=== PATIENT | female | born 1975 | race Caucasian/White ===

== ENCOUNTER 2016-11-14 20:48 | Emergency (ER) | payer SELFPAY ==
[2016-11-14 21:17] VITALS: BP 136/87
[2016-11-14] MEDS ORDERED: HYDROmorphone 2 MG/ML SDV IM ONE (21:35)
[2016-11-14] MEDS ORDERED: Ondansetron 4 MG Tab.DIS PO SCH (21:45)
[2016-11-14] MEDS ORDERED: Acetaminophen/HYDROcodone 325-5 MG Tab PO ONE (23:21)
--- NOTE | 2016-11-16 10:12 | ER ---
DATE SEEN: 11/14/2016 TIME SEEN: The patient was seen at 0920 hours. CHIEF COMPLAINT: Injury to left chest ribs, left knee, and left ankle. HISTORY OF PRESENT ILLNESS: This 41-year-old woman who works at the [employer] went into the freezer and fell down as she slipped and lost her balance and slipped on pickle water and a pickle. No loss of consciousness. No head injury, neck injury, no upper extremities discomfort or injury. She complains of left chest rib, left knee, and left ankle discomfort. REVIEW OF SYSTEMS: Negative. The patient is 10, para 5-5-0-5. Denies diabetes, heart disease, high blood pressure, asthma, or other serious illnesses. CURRENT MEDICATIONS: None. ALLERGIES: Latex, sesame oil, and strawberry. PHYSICAL EXAMINATION: VITAL SIGNS: The patient is in mild distress. Blood pressure 136/87, heart rate 103, respirations 18, oxygen saturation 96%, temperature is 36.2 centigrade. GENERAL: The patient is attended by her . The patient is mildly overweight, pleasant woman, in moderate distress. HEENT: PERRLA intact. Pharynx without abnormality. No dental abnormality. PERRLA intact. Pharynx without abnormality. No dental abnormalities or jaw line. NECK: No neck pain or discomfort, ecchymosis, swelling. No neck bruits. No cervical adenopathy. No masses of neck. LUNGS: Clear to auscultation without rales, rhonchi, or wheezes. CHEST WALL: No chest wall pain on palpation of the ribs or the sternal costochondral joints. She has mild left lower ribs 12 and 11 discomfort without crepitus. No ecchymosis or abrasions of the chest wall. ABDOMEN: Soft. No guarding. No abdominal discomfort. HEART: S1, S2. No murmur. No irregular rate and rhythm. EXTREMITIES: Upper extremities negative without abnormality. Left knee tenderness with compression of the patella. Mild medial and lateral joint line discomfort. Mild left lateral inferior thigh discomfort. No ecchymosis, swelling, or deformity noted. Palpation of the left lower extremity; no tenderness of the gastroc. There is mild distal 1/3rd tibial discomfort with lateral fibular discomfort. No deformity, minimal swelling. The patient was reluctant to move her ankle because this induced pain. No loss of sensation in left lower extremity. NEUROLOGICAL: Deep tendon reflexes hypoactive in upper and lower extremities. Cranial nerves II through XII intact, oriented x3. Gait not tested. LABORATORY DATA: X-rays of the left distal femur and knee, no evidence for effusion. Left ankle is negative. No evidence for fracture, subluxation. High ankle sprain - separation of the fibular or tibial ligaments. No separation of fibular or tibial syndesmosis. Ankle without edema. ASSESSMENT: 1. Left knee strain. 2. Possible collateral ligament strain - pain with collateral ligament stresses. Possible meniscal tear. Rule out internal knee derangement. 3. Left ankle sprain. No evidence for fracture of knee, patella, or left ankle. 4. Obesity. 5. Smoking history of half a pack per day. PLAN: The patient received Dilaudid 1 mg IM and Zofran 4 mg oral dissolving tab in the ED. Dismissed with 8 tablets of Vicodin to use for breakthrough pain, 1000 mg Tylenol, and 600 mg ibuprofen if not satisfactory. Follow up with your doctor in 7 days, elevate, use left ankle brace, and gradually increase activity as tolerated. Work compensation form completed. The patient to followup with her doctor in 5 days. /[id number] 331 31 MARIA R/[place]
--- NOTE | 2016-11-17 11:15 | CR ---
INDICATION: Fall with pain laterally, proximal 5th metatarsal. LEFT FOOT: Three views of the left foot revealed minimal degenerative changes at the first metatarsophalangeal and first metatarsal tarsal joints, with a small to moderate sized plantar calcaneal spur. A fracture, dislocation, or other significant bone or joint abnormality, was not identified. MTDD
--- NOTE | 2016-11-17 11:17 | CR ---
INDICATION: Fall, pain. LEFT TIBIA AND FIBULA: Frontal and lateral views of the left tibia and fibula revealed no definite fracture or dislocation, or other acute bone or joint abnormality. There appear to be some minimal hypertrophic changes at the ankle mortise, suggesting a mild degree of osteoarthritis. MTDD
--- NOTE | 2016-11-17 11:19 | CR ---
INDICATION: Fall, pain. FOOSH. LEFT FOREARM: Frontal and lateral views of the left forearm revealed no evidence of an acute fracture, dislocation, or other significant bone or joint abnormality. IMPRESSION: Normal left forearm. FABRICIO
--- NOTE | 2016-11-17 11:22 | CR ---
INDICATION: Fall. FOOSH. LEFT WRIST: Three views of the left wrist revealed no evidence of an acute fracture, dislocation, or other acute bone or joint abnormality. There appear to be some very minimal degenerative changes at the navicular multangular joints and mild degenerative changes at the first metacarpal-carpal joint. MTDD
== END 2016-11-14 23:30 | disposition home or self-care (01) ==
LOC: FB.ED 20:48
DX: S93.402A Sprain of unspecified ligament of left ankle, initial encounter (principal); S86.912A Strain of unspecified muscle(s) and tendon(s) at lower leg level, left leg, initial encounter; E66.9 Obesity, unspecified; F17.210 Nicotine dependence, cigarettes, uncomplicated; Z91.040 Latex allergy status; Z91.048 Other nonmedicinal substance allergy status; Z91.018 Allergy to other foods; W01.0XXA Fall on same level from slipping, tripping and stumbling without subsequent striking against object, initial encounter
CPT/HCPCS: 29125; 29515; 73090; 73110; 73590; 73630; 96372; 99283; A9270; J1170

== ENCOUNTER 2018-03-31 17:53 | Emergency (ER) | payer OTHER ==
--- NOTE | 2018-03-31 18:22 | EDM.PDOC ---
ED HPI GENERAL MEDICAL PROBLEM - General Chief Complaint: Chest Pain Stated Complaint: CHEST PAIN Time Seen by Provider: 03/31/18 18:05 Source of Information: Reports: Patient, Family History Limitations: Reports: No Limitations - History of Present Illness INITIAL COMMENTS - FREE TEXT/NARRATIVE: Carolann comes into [facility] ED with a 1 hour hx of L precordial stabbing chest pains, intermittent, with some radiation into the back. There is some SOB, without cough or wheezing. There is no nausea, palpitations, sweats, or lt headiness. She was inactive at the time, and reports no PMH of CAD. She does have a PMH of anxiety w panic attacks and fibromyalgia. She has tried no meds. - Related Data Allergies Allergy/AdvReac Type Severity Reaction Status Date / Time latex Allergy Rash Verified 03/31/18 18:24 sesame oil Allergy Other Verified 03/31/18 18:24 strawberry Allergy Rash Verified 03/31/18 18:24 Home Meds: Home Meds Escitalopram [Lexapro] 20 mg PO DAILY 03/31/18 [History] Social & Family History - Caffeine Use Caffeine Use: Reports: Coffee, Soda ED ROS GENERAL - Review of Systems Review Of Systems: See Below Constitutional: Reports: No Symptoms HEENT: Reports: No Symptoms Respiratory: Reports: Shortness of Breath Cardiovascular: Reports: Chest Pain, Lightheadedness Endocrine: Reports: No Symptoms GI/Abdominal: Reports: No Symptoms : Reports: No Symptoms Musculoskeletal: Reports: Muscle Pain (fibromyalgia) Skin: Reports: No Symptoms Neurological: Reports: No Symptoms Psychiatric: Reports: Anxiety Hematologic/Lymphatic: Reports: No Symptoms Immunologic: Reports: No Symptoms ED EXAM, GENERAL - Physical Exam Exam: See Below Exam Limited By: No Limitations General Appearance: Alert, WD/WN, No Apparent Distress, Anxious Eye Exam: Bilateral Eye: EOMI, Normal Inspection, PERRL Ears: Normal External Exam Nose: Normal Inspection Throat/Mouth: Normal Lips, Normal Oropharynx, Normal Voice, No Airway Compromise , Other (numerous caried teeth) Neck: Normal Inspection, Supple, Full Range of Motion Respiratory/Chest: No Respiratory Distress, Lungs Clear, Normal Breath Sounds, No Accessory Muscle Use, Other (parasternal chest tenderness #3,#4,#6 L>R) Cardiovascular: Normal Peripheral Pulses, Regular Rate, Rhythm, No Murmur GI/Abdominal: Normal Bowel Sounds, Soft, Non-Tender, No Organomegaly, No Distention, No Mass (Female) Exam: Deferred Rectal (Female) Exam: Deferred Back Exam: Normal Inspection, Full Range of Motion Extremities: Normal Inspection, Normal Range of Motion Neurological: Alert, Oriented, CN II-XII Intact, Normal Cognition, Normal Gait, No Motor/Sensory Deficits Psychiatric: Normal Affect, Anxious Skin Exam: Warm, Dry, Intact, Normal Color Lymphatic: No Adenopathy Course - Vital Signs Text/Narrative:: Following assessment at the [facility] ED, some screening labs were obtained, all baseline, Troponin <0.017; CBC and CMP WNL, ekg NSR, chest x rays WNL. Atypical chest pain, possibly related to fibromyalgia. - Orders/Labs/Meds Orders: Active Orders 24 hr Category Date Time Status EKG Documentation Completion [RC] ASDIRECTED Care 03/31/18 18:17 Active Chest 1V Frontal [CR] Stat Exams 03/31/18 18:16 Taken EKG 12 Lead [EK] Routine Ther 03/31/18 18:16 Ordered Labs: Laboratory Tests 03/31/18 03/31/18 03/31/18 Range/Units 18:30 18:30 18:30 WBC 8.5 (4.5-12.0) X10-3/uL RBC 4.12 (3.23-5.20) x10(6)uL Hgb 13.0 (11.5-15.5) g/dL Hct 38.2 (30.0-51.3) % MCV 92.6 (80-96) fL MCH 31.5 (27.7-33.6) pg MCHC 34.0 (32.2-35.4) g/dL RDW 14.1 (11.5-15.5) % Plt Count 327 (125-369) X10(3)uL MPV 8.4 (7.4-10.4) fL Neut % (Auto) 54.4 (46-82) % Lymph % (Auto) 32.6 (13-37) % Crosby % (Auto) 8.8 (4-12) % Eos % (Auto) 3 (1.0-5.0) % Baso % (Auto) 1 (0-2) % Neut # (Auto) 4.6 (1.6-8.3) # Lymph # (Auto) 2.8 (0.6-5.0) # Crosby # (Auto) 0.7 (0.0-1.3) # Eos # (Auto) 0.3 (0.0-0.8) # Baso # (Auto) 0.1 (0.0-0.2) # Sodium 138 (135-145) mmol/L Potassium 3.8 (3.5-5.3) mmol/L Chloride 102 (100-110) mmol/L Carbon Dioxide 27 (21-32) mmol/L BUN 7 (7-18) mg/dL Creatinine 0.7 (0.55-1.02) mg/dL Est Cr Clr Drug Dosing TNP Estimated GFR (MDRD) > 60 (>60) BUN/Creatinine Ratio 10.0 (9-20) Glucose 84 (80-116) mg/dL Calcium 8.7 (8.6-10.2) mg/dL Total Bilirubin 0.2 (0.1-1.3) mg/dL AST 10 (5-25) IU/L ALT 15 (12-36) U/L Alkaline Phosphatase 67 (56-112) IU/L Troponin I < 0.017 L (<0.017-0.056) ng/mL Total Protein 7.6 (6.0-8.0) g/dL Albumin 3.4 L (3.5-5.2) g/dL Globulin 4.2 g/dL Albumin/Globulin Ratio 0.8 Departure - Departure Time of Disposition: 18:56 Disposition: Home, Self-Care 01 Condition: Good Clinical Impression: Atypical chest pain Referrals: Nica Walton NP [Primary Care Provider] - Forms: ED Department Discharge - Problem List & Annotations (1) Atypical chest pain SNOMED Code(s): 661742056 Code(s): R07.89 - OTHER CHEST PAIN Status: Acute Current Visit: Yes Annotation/Comment:: Activity as tolerated, analgesic of choice. - Problem List Review Problem List Initiated/Reviewed/Updated: Yes - My Orders Last 24 Hours: My Active Orders 03/31/18 18:16 Chest 1V Frontal [CR] Stat EKG 12 Lead [EK] Routine 03/31/18 18:17 EKG Documentation Completion [RC] ASDIRECTED - Assessment/Plan Last 24 Hours: My Active Orders 03/31/18 18:16 Chest 1V Frontal [CR] Stat EKG 12 Lead [EK] Routine 03/31/18 18:17 EKG Documentation Completion [RC] ASDIRECTED Plan: Follow up with PCP if needed.
--- NOTE | 2018-04-01 15:03 | CR ---
INDICATION: Chest pain. CHEST, AP PORTABLE VIEW: FINDINGS: No comparison imaging. This patient appears to be of larger body habitus. There is some slight asymmetric increased density in the left lower lobe retrocardiac. It is possible that this simply is a summation of normal overlying breast tissue and normal lung markings. Otherwise, I assume a small area of atelectasis or infiltrate. I would recommend a followup x-ray at some point with PA and lateral views to document resolution of this abnormality. Otherwise, lungs are clear. The heart size and pulmonary vasculature are normal. There is no CHF. There is scoliosis deformity of the thoracic spine, curved convex right. There is some degenerative end plate change and spurring throughout the thoracic spine. IMPRESSION: Slight increased density in the left lobe retrocardiac. It could be a summation shadow versus an area of atelectasis or infiltrate. Recommend a followup PA and lateral view of the chest to document resolution at some point. [facility]
== END 2018-03-31 19:15 | disposition home or self-care (01) ==
LOC: FB.ED 17:53
DX: R07.89 Other chest pain (principal); Z91.040 Latex allergy status; Z88.8 Allergy status to other drugs, medicaments and biological substances; Z91.018 Allergy to other foods
CPT/HCPCS: 36415; 71045; 80053; 84484; 85025; 93005; 99285

== ENCOUNTER 2019-01-31 20:13 | Emergency (ER) | payer MEDICAID, OTHER ==
[2019-01-31] MEDS ORDERED: Sodium Chloride 0.9% 10 ML Syringe FLUSH PRN (20:46)
[2019-01-31] MEDS ORDERED: Ketorolac 30 MG/ML SDV IVPUSH ONE (20:47)
[2019-01-31] MEDS ORDERED: diphenhydrAMINE 50 MG/ML SDV IVPUSH ONE (20:47)
[2019-01-31] MEDS ORDERED: Prochlorperazine 10 MG in Sodium Chloride 0.9% 50 ML IV ONE (20:47)
[2019-01-31] MEDS ORDERED: Sodium Chloride 0.9% 500 ML IV ONE (20:47)
--- NOTE | 2019-01-31 20:59 | EDM.PDOC ---
ED HPI GENERAL MEDICAL PROBLEM - General Chief Complaint: Headache Stated Complaint: MIGRAINE Time Seen by Provider: 01/31/19 20:28 Source of Information: Reports: Patient History Limitations: Reports: No Limitations - History of Present Illness INITIAL COMMENTS - FREE TEXT/NARRATIVE: 43-year-old female with long-standing history of migraine headaches who reports onset of her typical migraine headache at about 1 PM yesterday. She states she got a dull ache behind her left eye and some squiggly's across her vision. She took Imitrex prior to the squiggly as beginning in her vision (she states this is normally all that it takes to stop her migraine) and it did not alleviate her headache. Headache was on just her left side but it has now generalized and worse in her occiput area. She rates pain as a 9/10. She has photophobia. She had vomiting 3 today with the last one being at approximately 7 PM. She has ongoing nausea now. She has had little appetite but she has unable to take some liquids. She's had no dysuria. She's had no hematuria. She's had no cough or shortness of breath. No antecedent problems. She reports that this headache is no different from her previous migraines other than it is worse and she has had headaches as bad as this before. She also took another dose of Imitrex today but no avail. There are no other associated signs or symptoms. There are no other modifying factors. 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(s) (Imitrex), Other (see below) Other Treatments DISASTER RECOVERY ANALYST: Imitrex Migraine Pain Score (Numeric/FACES): 9 - Related Data Allergies Allergy/AdvReac Type Severity Reaction Status Date / Time latex Allergy Rash Verified 01/31/19 20:22 sesame oil Allergy Other Verified 01/31/19 20:22 strawberry Allergy Rash Verified 07/01/19 20:22 Home Meds: Home Meds Gabapentin [Neurontin] 200 mg PO TID 01/31/19 [History] Prazosin HCl [Prazosin] 2 mg PO BEDTIME 01/31/19 [History] Propranolol [Inderal LA 24 Hr] 80 mg PO DAILY 01/31/19 [History] QUEtiapine [SEROquel XR] 25 mg PO BID PRN 01/31/19 [History] QUEtiapine [SEROquel XR] 100 mg PO BEDTIME 01/31/19 [History] SUMAtriptan [Imitrex] 50 mg PO BID PRN 01/31/19 [History] hydrOXYzine HCl [Atarax] 25 mg PO BID PRN 01/31/19 [History] lamoTRIgine [Lamotrigine] 150 mg PO DAILY 01/31/19 [History] Past Medical History HEENT History: Reports: Impaired Vision Gastrointestinal History: Reports: Inflammatory Bowel Disease 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: Musculoskeletal History: Reports: Fibromyalgia Neurological History: Reports: Migraines Psychiatric History: Reports: Anxiety, Bipolar, Depression Endocrine/Metabolic History: Reports: Obesity/BMI 30+ - Infectious Disease History Infectious Disease History: Reports: Chicken Pox - Past Surgical History GI Surgical History: Reports: Cholecystectomy, Colonoscopy, EGD Social & Family History - Tobacco Use Smoking Status *Q: Current Every Day Smoker Years of Tobacco use: 24 Packs/Tins Daily: 0.6 - Caffeine Use Caffeine Use: Reports: Coffee, Energy Drinks, Soda, Tea - Alcohol Use Alcohol Use History: No - Recreational Drug Use Recreational Drug Use: No - Living Situation & Occupation Social History Comment: 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 She is here with her daughter. ED ROS GENERAL - Review of Systems Review Of Systems: See Below Constitutional: Reports: Decreased Appetite HEENT: Reports: No Symptoms Respiratory: Reports: No Symptoms Cardiovascular: Reports: No Symptoms GI/Abdominal: Reports: Nausea, Vomiting : Reports: No Symptoms Musculoskeletal: Reports: No Symptoms Skin: Reports: No Symptoms Neurological: Reports: Headache Psychiatric: Reports: No Symptoms Hematologic/Lymphatic: Reports: No Symptoms Immunologic: Reports: No Symptoms - Physical Exam Exam: See Below Exam Limited By: No Limitations General Appearance: Alert, WD/WN, Moderate Distress Eye Exam: Bilateral Eye: EOMI, Normal Inspection, PERRL, Other (Photophobia) Ears: Normal External Exam Nose: Normal Inspection, Normal Mucosa, No Blood Throat/Mouth: Normal Voice, No Airway Compromise, Other (Somewhat dry mucous membranes) Head Exam: Atraumatic, Normocephalic Neck: Normal Inspection, Supple, Non-Tender, Full Range of Motion Respiratory/Chest: No Respiratory Distress, Lungs Clear, Normal Breath Sounds, No Accessory Muscle Use, Chest Non-Tender Cardiovascular: Normal Peripheral Pulses, Regular Rate, Rhythm, No JVD, No Murmur GI/Abdominal: Normal Bowel Sounds, Soft, Non-Tender, No Distention, No Mass Neuro Exam (Abbreviated): Alert, Oriented, CN II-XII Intact, Normal Cognition, No Motor/Sensory Deficits Back Exam: Normal Inspection Extremities: Normal Inspection, Normal Range of Motion, Non-Tender, No Pedal Edema, Normal Capillary Refill Skin Exam: Warm, Dry, Intact, Normal Color, No Rash Course - Vital Signs Last Recorded V/S: Last Vital Signs Temp 36.8 C 01/31/19 20:15 Pulse 96 01/31/19 20:15 Resp 18 01/31/19 20:15 BP 140/90 01/31/19 20:15 Pulse Ox 100 01/31/19 20:15 - Orders/Labs/Meds Orders: Active Orders 24 hr Category Date Time Status Sodium Chloride 0.9% [Saline Flush] Med 01/31/19 20:46 Active 10 ml FLUSH ASDIRECTED PRN Peripheral IV Insertion Adult [OM.PC] Routine Oth 01/31/19 20:46 Ordered Medication Orders Sodium Chloride (Saline Flush) 10 ml FLUSH ASDIRECTED PRN PRN Reason: Keep Vein Open Last Admin: 01/31/19 20:45 Dose: 10 ml Meds: Medications Generic Name Dose Route Start Last Admin Trade Name Freq PRN Reason Stop Dose Admin Sodium Chloride 10 ml 01/31/19 20:46 01/31/19 20:45 Saline Flush FLUSH 10 ml ASDIRECTED PRN Administration Keep Vein Open Discontinued Medications Generic Name Dose Route Start Last Admin Trade Name Freq PRN Reason Stop Dose Admin Diphenhydramine HCl 50 mg 01/31/19 20:47 01/31/19 21:00 Benadryl IVPUSH 01/31/19 20:48 50 mg ONETIME ONE Administration Prochlorperazine Edisylate 10 52 mls @ 150 mls/hr 01/31/19 20:47 01/31/19 21: 02 mg/ Sodium Chloride IV 01/31/19 21:07 150 mls/hr ONETIME ONE Administration Sodium Chloride 500 mls @ 999 mls/hr 01/31/19 20:47 01/31/19 20:55 Normal Saline IV 01/31/19 21:17 999 mls/hr .BOLUS ONE Administration Ketorolac Tromethamine 30 mg 01/31/19 20:47 01/31/19 20:59 Toradol IVPUSH 01/31/19 20:48 30 mg ONETIME ONE Administration - Re-Assessments/Exams Free Text/Narrative Re-Assessment/Exam: 01/31/19 21:50: Normal saline boluses been infused. Medications including Compazine, Benadryl and Toradol have been infused. The patient's pain is a 6/10 and decreasing. Her nausea is gone. She feels much improved and would like to go home at this time. Departure - Departure Time of Disposition: 21:55 Disposition: Home, Self-Care 01 Condition: Good (Improved) Clinical Impression: Migraine, Mild dehydration - Discharge Information Instructions: Recurrent Migraine Headache, [id number] Referrals: César Goodwin MD [Primary Care Provider] - Forms: ED Department Discharge Additional Instructions: Drink plenty of fluids. Rest in a dark, quiet room. Follow-up with your primary doctor as needed. Back to the emergency department for increasing pain, unrelenting vomiting, fever or any other concerning sign or symptom. - My Orders Last 24 Hours: My Active Orders 01/31/19 20:46 Sodium Chloride 0.9% [Saline Flush] 10 ml FLUSH ASDIRECTED PRN Peripheral IV Insertion Adult [OM.PC] Routine - Assessment/Plan Last 24 Hours: My Active Orders 01/31/19 20:46 Sodium Chloride 0.9% [Saline Flush] 10 ml FLUSH ASDIRECTED PRN Peripheral IV Insertion Adult [OM.PC] Routine
== END 2019-01-31 21:59 | disposition home or self-care (01) ==
LOC: FB.ED 20:13
DX: G43.909 Migraine, unspecified, not intractable, without status migrainosus (principal); E86.0 Dehydration; E66.9 Obesity, unspecified; Z91.040 Latex allergy status; Z91.018 Allergy to other foods; Z90.49 Acquired absence of other specified parts of digestive tract
CPT/HCPCS: 96365; 96375; 99283; J0780; J1200; J1885; J7040; J7050

== ENCOUNTER 2019-06-21 20:48 | Emergency (ER) | payer MEDICAID ==
--- NOTE | 2019-06-21 21:00 | EDM.PDOC ---
ED HPI GENERAL MEDICAL PROBLEM - General Stated Complaint: LEFT KNEE AND ANKLE Time Seen by Provider: 06/21/19 20:50 Source of Information: Reports: Patient - History of Present Illness INITIAL COMMENTS - FREE TEXT/NARRATIVE: Patient presented to the ED because of left knee and left ankle pain. She tripped and fell into a toy and twisted her left ankle left knee and ankle Pain Score (Numeric/FACES): 7 - Related Data Allergies Allergy/AdvReac Type Severity Reaction Status Date / Time latex Allergy Rash Verified 01/31/19 20:22 sesame oil Allergy Other Verified 01/31/19 20:22 strawberry Allergy Rash Verified 01/31/19 20:22 Home Meds: Home Meds Gabapentin [Neurontin] 200 mg PO TID 01/31/19 [History] Prazosin HCl [Prazosin] 2 mg PO BEDTIME 01/31/19 [History] Propranolol [Inderal LA 24 Hr] 80 mg PO DAILY 01/31/19 [History] QUEtiapine [SEROquel XR] 25 mg PO BID PRN 01/31/19 [History] QUEtiapine [SEROquel XR] 100 mg PO BEDTIME 01/31/19 [History] SUMAtriptan [Imitrex] 50 mg PO BID PRN 01/31/19 [History] hydrOXYzine HCl [Atarax] 25 mg PO BID PRN 01/31/19 [History] lamoTRIgine [Lamotrigine] 150 mg PO DAILY 01/31/19 [History] Past Medical History HEENT History: Reports: Impaired Vision Gastrointestinal History: Reports: Inflammatory Bowel Disease 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: Musculoskeletal History: Reports: Fibromyalgia Neurological History: Reports: Migraines Psychiatric History: Reports: Anxiety, Bipolar, Depression Endocrine/Metabolic History: Reports: Obesity/BMI 30+ - Infectious Disease History Infectious Disease History: Reports: Chicken Pox - Past Surgical History GI Surgical History: Reports: Cholecystectomy, Colonoscopy, EGD Social & Family History - Family History Family Medical History: Noncontributory - Caffeine Use Caffeine Use: Reports: Coffee, Energy Drinks, Soda, Tea Review of Systems - Review of Systems Review Of Systems: See Below Constitutional: Reports: No Symptoms Eyes: Reports: No Symptoms Ears: Reports: No Symptoms Nose: Reports: No Symptoms Mouth/Throat: Reports: No Symptoms Respiratory: Reports: No Symptoms Cardiovascular: Reports: No Symptoms Musculoskeletal: Reports: Joint Pain, Joint Swelling Neurological: Reports: No Symptoms Psychiatric: Reports: No Symptoms ED EXAM, GENERAL - Physical Exam Exam: See Below Exam Limited By: No Limitations General Appearance: Alert, No Apparent Distress Ears: Normal External Exam, Normal Canal, Hearing Grossly Normal Nose: Normal Inspection, Normal Mucosa, No Blood Throat/Mouth: Normal Inspection, Normal Lips, Normal Teeth, Normal Gums Head: Atraumatic, Normocephalic Neck: Normal Inspection, Supple, Non-Tender, Full Range of Motion Respiratory/Chest: No Respiratory Distress, Lungs Clear, Normal Breath Sounds Cardiovascular: Normal Peripheral Pulses, Regular Rate, Rhythm, No Edema, No Gallop GI/Abdominal: Normal Bowel Sounds, Soft, Non-Tender, No Organomegaly, No Distention, No Abnormal Bruit, No Mass (Female) Exam: Normal External Exam, Normal Speculum Exam Back Exam: Normal Inspection, Full Range of Motion Extremities: Joint Swelling, Other (tenderness lateral and medial aspect of left ankle) Psychiatric: Normal Affect Course - Vital Signs Text/Narrative:: xrays reviewed with patient refused pain meds crutches provided Last Recorded V/S: Last Vital Signs Temp 36.6 C 06/21/19 20:48 Pulse 89 06/21/19 20:48 Resp 17 06/21/19 20:48 BP 124/67 06/21/19 20:48 Pulse Ox 100 06/21/19 20:48 - Orders/Labs/Meds Orders: Active Orders 24 hr Category Date Time Status Ankle Min 3V Lt [CR] Stat Exams 06/21/19 20:56 Taken Knee 3V Lt [CR] Stat Exams 06/21/19 20:56 Taken Departure - Departure Time of Disposition: 21:45 Disposition: Home, Self-Care 01 Condition: Good Clinical Impression: Ankle sprain, Knee sprain - Discharge Information Instructions: Crutch Use, Adult, [id number], Ankle Sprain, Knee Sprain, Adult , [id number] Referrals: César Goodwin MD [Primary Care Provider] - Forms: ED Department Discharge Additional Instructions: please read discharge instructions on ankle and knee sprain apply ice elevate use your crutches until your knee and ankle feels better take ibuprofen 800 mg with tylenol 1000 mg every 8 hours as needed for pain follow up as needed - My Orders Last 24 Hours: My Active Orders 06/21/19 20:56 Ankle Min 3V Lt [CR] Stat Knee 3V Lt [CR] Stat - Assessment/Plan Last 24 Hours: My Active Orders 06/21/19 20:56 Ankle Min 3V Lt [CR] Stat Knee 3V Lt [CR] Stat
== END 2019-06-21 21:25 | disposition home or self-care (01) ==
LOC: FB.ED 20:48
DX: S93.402A Sprain of unspecified ligament of left ankle, initial encounter (principal); S83.92XA Sprain of unspecified site of left knee, initial encounter; F41.9 Anxiety disorder, unspecified; F32.9 Major depressive disorder, single episode, unspecified; E66.9 Obesity, unspecified; Z68.39 Body mass index [BMI] 39.0-39.9, adult; Z91.018 Allergy to other foods; Z91.040 Latex allergy status; Z79.899 Other long term (current) drug therapy; W01.0XXA Fall on same level from slipping, tripping and stumbling without subsequent striking against object, initial encounter
CPT/HCPCS: 73562-LT; 73610-LT; 99283-25

== ENCOUNTER 2019-10-01 12:13 | Emergency (ER) | payer MEDICAID ==
[2019-10-01] MEDS ORDERED: HYDROmorphone 2 MG/ML SDV IVPUSH ONE (12:39)
[2019-10-01] MEDS ORDERED: Sodium Chloride 0.9% 10 ML Syringe FLUSH PRN (12:39)
--- NOTE | 2019-10-01 12:39 | EDM.PDOC ---
ED HPI GENERAL MEDICAL PROBLEM - General Chief Complaint: Gastrointestinal Problem Stated Complaint: ABD PAIN Time Seen by Provider: 10/01/19 12:36 Source of Information: Reports: Patient History Limitations: Reports: No Limitations - History of Present Illness INITIAL COMMENTS - FREE TEXT/NARRATIVE: Presents with right mid abdominal pain x 2 days, worse in the last 1.5 hours. Complains of nausea, no vomiting or change in bowel habits. Past surgical history includes cholecystectomy and hysterectomy (09/09/19). Duration: Day(s): (2) Location: Reports: Abdomen Severity: Moderate - Related Data Allergies Allergy/AdvReac Type Severity Reaction Status Date / Time latex Allergy Rash Verified 01/31/19 20:22 sesame oil Allergy Other Verified 01/31/19 20:22 strawberry Allergy Rash Verified 01/31/19 20:22 Home Meds: Home Meds Gabapentin [Neurontin] 200 mg PO TID 01/31/19 [History] Prazosin HCl [Prazosin] 2 mg PO BEDTIME 01/31/19 [History] Propranolol [Inderal LA 24 Hr] 80 mg PO DAILY 01/31/19 [History] QUEtiapine [SEROquel XR] 25 mg PO BID PRN 01/31/19 [History] QUEtiapine [SEROquel XR] 100 mg PO BEDTIME 01/31/19 [History] SUMAtriptan [Imitrex] 50 mg PO BID PRN 01/31/19 [History] hydrOXYzine HCL [Atarax] 25 mg PO BID PRN 01/31/19 [History] lamoTRIgine [Lamotrigine] 150 mg PO DAILY 01/31/19 [History] Past Medical History HEENT History: Reports: Impaired Vision Gastrointestinal History: Reports: Inflammatory Bowel Disease 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: Musculoskeletal History: Reports: Fibromyalgia Neurological History: Reports: Migraines Psychiatric History: Reports: Anxiety, Bipolar, Depression Endocrine/Metabolic History: Reports: Obesity/BMI 30+ - Infectious Disease History Infectious Disease History: Reports: Chicken Pox - Past Surgical History GI Surgical History: Reports: Cholecystectomy, Colonoscopy, EGD Female Surgical History: Reports: Hysterectomy Social & Family History - Family History Family Medical History: Noncontributory - Caffeine Use Caffeine Use: Reports: Coffee, Energy Drinks, Soda, Tea ED ROS GENERAL - Review of Systems Review Of Systems: Comprehensive ROS is negative, except as noted in HPI. ED EXAM, GI/ABD - Physical Exam Exam: See Below Exam Limited By: No Limitations General Appearance: Alert, WD/WN, No Apparent Distress Ears: Normal External Exam Nose: Normal Inspection Throat/Mouth: No Airway Compromise Head: Atraumatic, Normocephalic Neck: Full Range of Motion Respiratory/Chest: No Respiratory Distress, Lungs Clear, Normal Breath Sounds Cardiovascular: Regular Rate, Rhythm, No Murmur GI/Abdominal Exam: Normal Bowel Sounds, Soft, No Distention, Tender (Right mid and lower abdomen). No: Guarding Back Exam: No: CVA Tenderness (R), CVA Tenderness (L) Extremities: Normal Range of Motion Neurological: Alert, Normal Cognition Psychiatric: Normal Affect, Normal Mood Skin Exam: Warm, Dry, Intact Course - Vital Signs Last Recorded V/S: Last Vital Signs Temp 36.7 C 10/01/19 13:00 Pulse 70 10/01/19 13:00 Resp 16 10/01/19 13:00 BP 117/66 10/01/19 13:00 Pulse Ox 98 10/01/19 13:00 - Orders/Labs/Meds Orders: Active Orders 24 hr Category Date Time Status Abdomen Pelvis w Cont [CT] Stat Exams 10/01/19 14:49 Taken Sodium Chloride 0.9% [Saline Flush] Med 10/01/19 12:39 Active 10 ml FLUSH ASDIRECTED PRN Saline Lock Insert [OM.PC] Routine Oth 10/01/19 12:39 Ordered Medication Orders Sodium Chloride (Saline Flush) 10 ml FLUSH ASDIRECTED PRN PRN Reason: Keep Vein Open Labs: Laboratory Tests 10/01/19 10/01/19 10/01/19 Range/Units 12:40 13:00 13:00 WBC 7.6 (4.5-12.0) X10-3/uL RBC 4.31 (3.23-5.20) x10(6)uL Hgb 12.5 (11.5-15.5) g/dL Hct 38.2 (30.0-51.3) % MCV 88.6 (80-96) fL MCH 28.9 (27.7-33.6) pg MCHC 32.7 (32.2-35.4) g/dL RDW 14.5 (11.5-15.5) % Plt Count 464 H (125-369) X10(3)uL MPV 7.7 (7.4-10.4) fL Neut % (Auto) 49.9 (46-82) % Lymph % (Auto) 31.7 (13-37) % [place] % (Auto) 8.4 (4-12) % Eos % (Auto) 9 H (1.0-5.0) % Baso % (Auto) 1 (0-2) % Neut # (Auto) 3.8 (1.6-8.3) # Lymph # (Auto) 2.4 (0.6-5.0) # [place] # (Auto) 0.6 (0.0-1.3) # Eos # (Auto) 0.7 (0.0-0.8) # Baso # (Auto) 0.1 (0.0-0.2) # Sodium 143 (135-145) mmol/L Potassium 4.3 (3.5-5.3) mmol/L Chloride 105 (100-110) mmol/L Carbon Dioxide 28 (21-32) mmol/L BUN 7 (7-18) mg/dL Creatinine 0.7 (0.55-1.02) mg/dL Est Cr Clr Drug Dosing TNP Estimated GFR (MDRD) > 60 (>60) BUN/Creatinine Ratio 10.0 (9-20) Glucose 93 (80-116) mg/dL Calcium 8.8 (8.6-10.2) mg/dL Total Bilirubin 0.2 (0.1-1.3) mg/dL AST 13 D (5-25) IU/L ALT 19 D (12-36) U/L Alkaline Phosphatase 84 (56-112) IU/L Total Protein 7.5 (6.0-8.0) g/dL Albumin 3.5 (3.5-5.2) g/dL Globulin 4.0 g/dL Albumin/Globulin Ratio 0.9 Lipase (73-393) U/L Urine Color Yellow (YELLOW) Urine Appearance Clear (CLEAR) Urine pH 6.0 (5.0-6.5) Ur Specific [place] 1.015 (1.010-1.025) Urine Protein Negative (NEGATIVE) mg/dL Urine Glucose (UA) Normal (NORMAL) mg/dL Urine Ketones Negative (NEGATIVE) mg/dL Urine Occult Blood Negative (NEGATIVE) Urine Nitrite Negative (NEGATIVE) Urine Bilirubin Negative (NEGATIVE) Urine Urobilinogen Normal (NEGATIVE) mg/dL Ur Leukocyte Esterase Negative (NEGATIVE) Urine RBC 0-5 (0-5) Urine WBC 5-10 H (0-5) Ur Squamous Epith Cells Occasional (NS,R,O) Urine Bacteria Few H (NS) 10/01/19 Range/Units 13:00 WBC (4.5-12.0) X10-3/uL RBC (3.23-5.20) x10(6)uL Hgb (11.5-15.5) g/dL Hct (30.0-51.3) % MCV (80-96) fL MCH (27.7-33.6) pg MCHC (32.2-35.4) g/dL RDW (11.5-15.5) % Plt Count (125-369) X10(3)uL MPV (7.4-10.4) fL Neut % (Auto) (46-82) % Lymph % (Auto) (13-37) % [place] % (Auto) (4-12) % Eos % (Auto) (1.0-5.0) % Baso % (Auto) (0-2) % Neut # (Auto) (1.6-8.3) # Lymph # (Auto) (0.6-5.0) # [place] # (Auto) (0.0-1.3) # Eos # (Auto) (0.0-0.8) # Baso # (Auto) (0.0-0.2) # Sodium (135-145) mmol/L Potassium (3.5-5.3) mmol/L Chloride (100-110) mmol/L Carbon Dioxide (21-32) mmol/L BUN (7-18) mg/dL Creatinine (0.55-1.02) mg/dL Est Cr Clr Drug Dosing Estimated GFR (MDRD) (>60) BUN/Creatinine Ratio (9-20) Glucose (80-116) mg/dL Calcium (8.6-10.2) mg/dL Total Bilirubin (0.1-1.3) mg/dL AST (5-25) IU/L ALT (12-36) U/L Alkaline Phosphatase (56-112) IU/L Total Protein (6.0-8.0) g/dL Albumin (3.5-5.2) g/dL Globulin g/dL Albumin/Globulin Ratio Lipase 100 (73-393) U/L Urine Color (YELLOW) Urine Appearance (CLEAR) Urine pH (5.0-6.5) Ur Specific [place] (1.010-1.025) Urine Protein (NEGATIVE) mg/dL Urine Glucose (UA) (NORMAL) mg/dL Urine Ketones (NEGATIVE) mg/dL Urine Occult Blood (NEGATIVE) Urine Nitrite (NEGATIVE) Urine Bilirubin (NEGATIVE) Urine Urobilinogen (NEGATIVE) mg/dL Ur Leukocyte Esterase (NEGATIVE) Urine RBC (0-5) Urine WBC (0-5) Ur Squamous Epith Cells (NS,R,O) Urine Bacteria (NS) Meds: Medications Generic Name Dose Route Start Last Admin Trade Name Freq PRN Reason Stop Dose Admin Sodium Chloride 10 ml 10/01/19 12:39 Saline Flush FLUSH ASDIRECTED PRN Keep Vein Open Discontinued Medications Generic Name Dose Route Start Last Admin Trade Name Freq PRN Reason Stop Dose Admin Hydromorphone HCl 1 mg 10/01/19 12:39 10/01/19 12:51 Dilaudid IVPUSH 10/01/19 12:40 1 mg ONETIME ONE Administration Iopamidol 100 ml 10/01/19 14:26 10/01/19 14:32 Isovue-370 (76%) IV 10/01/19 14:27 98 ml ONETIME ONE Administration - Radiology Interpretation Free Text/Narrative:: CT Abd/Pelvis w/ IV contrast: There is a small fat containing periumbilical hernia with no sign of any inflammatory changes. The loops of bowel are normal in appearance. No biliary ductal dilatation. Normal changes of hysterectomy. ( [facility], Dr. Owen) - Re-Assessments/Exams Free Text/Narrative Re-Assessment/Exam: 10/01/19 15:10 Symptoms improved after Dilaudid 1 mg IV. Departure - Departure Time of Disposition: 15:11 Disposition: Home, Self-Care 01 Condition: Good Clinical Impression: Abdominal pain - Discharge Information *PRESCRIPTION DRUG MONITORING PROGRAM REVIEWED*: Yes *COPY OF PRESCRIPTION DRUG MONITORING REPORT IN PATIENT BALA: No Instructions: Abdominal Pain, Adult, [id number] Referrals: César Goodwin MD [Primary Care Provider] - Forms: ED Department Discharge Additional Instructions: Rest, drink plenty of fluids. Follow up with your primary physician in 2-3 days if symptoms don't improve. Return to the ER if symptoms worsen. Sepsis Event Note - Focused Exam Vital Signs: Vital Signs Temp Pulse Resp BP Pulse Ox 10/01/19 13:00 36.7 C 70 16 117/66 98 Date Exam was Performed: 10/01/19 Time Exam was Performed: 15:07 - My Orders Last 24 Hours: My Active Orders 10/01/19 12:39 Sodium Chloride 0.9% [Saline Flush] 10 ml FLUSH ASDIRECTED PRN Saline Lock Insert [OM.PC] Routine 10/01/19 14:49 Abdomen Pelvis w Cont [CT] Stat - Assessment/Plan Last 24 Hours: My Active Orders 10/01/19 12:39 Sodium Chloride 0.9% [Saline Flush] 10 ml FLUSH ASDIRECTED PRN Saline Lock Insert [OM.PC] Routine 10/01/19 14:49 Abdomen Pelvis w Cont [CT] Stat
[2019-10-01] MEDS ORDERED: Iopamidol 755 Mg/ML 100 ML Bottle IV ONE (14:26)
== END 2019-10-01 15:23 | disposition home or self-care (01) ==
LOC: FB.ED 12:13
DX: R10.9 Unspecified abdominal pain (principal); F31.9 Bipolar disorder, unspecified; F41.9 Anxiety disorder, unspecified; Z79.899 Other long term (current) drug therapy; Z91.040 Latex allergy status; Z91.018 Allergy to other foods
CPT/HCPCS: 36415; 74177; 80053; 81001; 83690; 85025; 96374; 99284; J1170; Q9967

== ENCOUNTER 2019-12-23 23:23 | Emergency (ER) | payer MEDICAID ==
[2019-12-24] MEDS ORDERED: Cyclobenzaprine 10 MG Tab PO ONE (01:05)
[2019-12-24] MEDS ORDERED: Ketorolac 60 MG/2 ML SDV IM ONE (01:05)
--- NOTE | 2019-12-24 01:22 | EDM.PDOC ---
ED HPI GENERAL MEDICAL PROBLEM - General Chief Complaint: Back Pain or Injury Stated Complaint: LOWER BACK PAIN Time Seen by Provider: 12/23/19 23:30 Source of Information: Reports: Patient History Limitations: Reports: No Limitations - History of Present Illness INITIAL COMMENTS - FREE TEXT/NARRATIVE: lower back pain , localized non radiating for 1-2 weeks getting worse no obvious aggravating factor now has pain in the left flank radiating to the groin states she has had colonoscopy that has been negative for diverticulosis has had regular BM no diarrhea Onset: Today Onset Date: 12/23/19 Duration: Hour(s):, Getting Worse, Intermittent Location: Reports: Abdomen Severity: Moderate Improves with: Reports: None Worsens with: Reports: None Associated Symptoms: Reports: Loss of Appetite, Weakness - Related Data Allergies Allergy/AdvReac Type Severity Reaction Status Date / Time latex Allergy Blisters Verified 12/24/19 00:33 sesame oil Allergy Swollen Verified 12/24/19 00:33 Tongue strawberry Allergy Hives Verified 12/24/19 00:33 treenuts Allergy Swollen Uncoded 12/24/19 00:33 Tongue Home Meds: Home Meds Prazosin HCl [Prazosin] 2 mg PO BEDTIME 01/31/19 [History] hydrOXYzine HCL [Atarax] 25 mg PO Q6H PRN 01/31/19 [History] Cyclobenzaprine [Flexeril] 10 mg PO TID #30 tab 12/24/19 [Rx] Diclofenac Sodium 75 mg PO BID PRN 12/24/19 [History] Furosemide 20 mg PO DAILY PRN 12/24/19 [History] Gabapentin [Neurontin] 300 mg PO TID 12/24/19 [History] Propranolol HCl [Inderal Xl] 120 mg PO DAILY 12/24/19 [History] QUEtiapine [SEROquel] 200 mg PO BEDTIME 12/24/19 [History] Rizatriptan Benzoate [Rizatriptan] 10 mg .ROUTE ASDIRECTED PRN 12/24/19 [History ] lamoTRIgine 200 mg PO DAILY 12/24/19 [History] tiZANidine [Zanaflex] 2 - 4 mg PO TID PRN 12/24/19 [History] Past Medical History HEENT History: Reports: Impaired Vision Gastrointestinal History: Reports: Inflammatory Bowel Disease 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5 - Caffeine Use Caffeine Use: Reports: Coffee, Energy Drinks, Soda, Tea ED ROS GENERAL - Review of Systems Review Of Systems: See Below Constitutional: Reports: Decreased Appetite. Denies: Fever, Chills, Malaise HEENT: Denies: No Symptoms Respiratory: Reports: No Symptoms Cardiovascular: Reports: No Symptoms Endocrine: Reports: No Symptoms GI/Abdominal: Reports: Abdominal Pain. Denies: Constipation, Diarrhea, Decreased Appetite, Distension, Flatus, Mucous in Stool, Stool Incontinence : Reports: No Symptoms Musculoskeletal: Reports: Back Pain, Muscle Pain Skin: Reports: No Symptoms Neurological: Reports: No Symptoms Psychiatric: Reports: No Symptoms Hematologic/Lymphatic: Reports: No Symptoms Immunologic: Reports: No Symptoms ED EXAM,LOWER BACK PAIN/INJURY - Physical Exam Exam: See Below Exam Limited By: No Limitations General Appearance: Alert, WD/WN, No Apparent Distress Eye Exam: Bilateral Eye: EOMI Ears: Normal External Exam Nose: Normal Inspection Throat/Mouth: Normal Oropharynx Head: Atraumatic, Normocephalic Neck: Supple, Non-Tender Respiratory/Chest: No Respiratory Distress, Lungs Clear, Normal Breath Sounds Cardiovascular: Normal Peripheral Pulses, Regular Rate, Rhythm GI/Abdominal: Soft, Distended, Tender (in LLQ). No: Guarding, Rigid Back Exam: Decreased Range of Motion, Muscle Spasm, Paraspinal Tenderness. No: Vertebral Tenderness Extremities: Normal Range of Motion, Non-Tender Neurological: Alert, Normal Mood/Affect, CN II-XII Intact Course - Vital Signs Last Recorded V/S: Last Vital Signs Temp 37.0 C 12/23/19 23:35 Pulse 88 12/23/19 23:35 Resp 16 12/23/19 23:35 BP 156/81 H 12/23/19 23:35 Pulse Ox 96 12/23/19 23:35 - Orders/Labs/Meds Labs: Laboratory Tests 12/24/19 Range/Units 00:20 Urine Color Yellow (YELLOW) Urine Appearance Slightly cloudy (CLEAR) Urine pH 6.5 (5.0-6.5) Ur Specific [place] 1.010 (1.010-1.025) Urine Protein Negative (NEGATIVE) mg/dL Urine Glucose (UA) Normal (NORMAL) mg/dL Urine Ketones Negative (NEGATIVE) mg/dL Urine Occult Blood Negative (NEGATIVE) Urine Nitrite Negative (NEGATIVE) Urine Bilirubin Negative (NEGATIVE) Urine Urobilinogen Normal (NEGATIVE) mg/dL Ur Leukocyte Esterase Negative (NEGATIVE) Urine RBC 0-5 (0-5) Urine WBC 0-5 (0-5) Ur Squamous Epith Cells Few H (NS,R,O) Urine Bacteria Few H (NS) Urine Mucus Few H (NS) - Re-Assessments/Exams Free Text/Narrative Re-Assessment/Exam: 12/24/19 01:28 had UA done that was negative Declined to have CT of the abdomen done states if pain does not resolve she will return for CT of the abdomen Departure - Departure Time of Disposition: 01:30 Disposition: Home, Self-Care 01 Condition: Fair Clinical Impression: Lumbar paraspinal muscle spasm, Low back pain, Continuous LLQ abdominal pain - Discharge Information Referrals: César Goodwin MD [Primary Care Provider] - Sepsis Event Note - Focused Exam Vital Signs: Vital Signs Temp Pulse Resp BP Pulse Ox 12/23/19 23:35 37.0 C 88 16 156/81 H 96 Date Exam was Performed: 12/24/19 Time Exam was Performed: 01:02
== END 2019-12-24 01:35 | disposition home or self-care (01) ==
LOC: FB.ED 23:23
DX: M62.830 Muscle spasm of back (principal); R10.32 Left lower quadrant pain; G43.909 Migraine, unspecified, not intractable, without status migrainosus; F31.9 Bipolar disorder, unspecified; F41.9 Anxiety disorder, unspecified; F17.210 Nicotine dependence, cigarettes, uncomplicated; E66.9 Obesity, unspecified; Z68.41 Body mass index [BMI] 40.0-44.9, adult; Z91.040 Latex allergy status; Z91.09 Other allergy status, other than to drugs and biological substances; Z91.018 Allergy to other foods
CPT/HCPCS: 81001; 96372; 99284; A9270; J1885

== ENCOUNTER 2020-02-16 23:24 | Emergency (ER) | payer MEDICAID ==
--- NOTE | 2020-02-16 23:56 | EDM.PDOC ---
ED HPI GENERAL MEDICAL PROBLEM - General Chief Complaint: Lower Extremity Injury/Pain Stated Complaint: RIGHT ANKLE Time Seen by Provider: 02/16/20 23:55 Source of Information: Reports: Patient History Limitations: Reports: No Limitations - History of Present Illness INITIAL COMMENTS - FREE TEXT/NARRATIVE: Fell out of shower,landed on right lower ext. Pain on ambulation,rt knee and ankle. 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 Pain Score (Numeric/FACES): 7 - Related Data Allergies Allergy/AdvReac Type Severity Reaction Status Date / Time latex Allergy Blisters Verified 02/16/20 23:31 sesame oil Allergy Swollen Verified 02/16/20 23:31 Tongue strawberry Allergy Hives Verified 02/16/20 23:31 treenuts Allergy Swollen Uncoded 02/16/20 23:31 Tongue Home Meds: Home Meds Prazosin HCl [Prazosin] 2 mg PO BEDTIME 01/31/19 [History] hydrOXYzine HCL [Atarax] 25 mg PO Q6H PRN 01/31/19 [History] Furosemide 20 mg PO DAILY PRN 12/24/19 [History] Propranolol HCl [Inderal Xl] 120 mg PO BEDTIME 12/24/19 [History] QUEtiapine [SEROquel] 200 mg PO BEDTIME 12/24/19 [History] Rizatriptan Benzoate [Rizatriptan] 10 mg .ROUTE ASDIRECTED PRN 12/24/19 [History] lamoTRIgine 200 mg PO BEDTIME 12/24/19 [History] tiZANidine [Zanaflex] 2 - 4 mg PO TID PRN 12/24/19 [History] Cyclobenzaprine [Flexeril] 10 mg PO TID PRN 02/16/20 [History] Pregabalin [Lyrica] 150 mg PO BID 02/16/20 [History] Past Medical History HEENT History: Reports: Impaired Vision Gastrointestinal History: Reports: Inflammatory Bowel Disease 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: Musculoskeletal History: Reports: Fibromyalgia Neurological History: Reports: Migraines Psychiatric History: Reports: Anxiety, Bipolar, Depression Endocrine/Metabolic History: Reports: Obesity/BMI 30+ - Infectious Disease History Infectious Disease History: Reports: Chicken Pox - Past Surgical History GI Surgical History: Reports: Cholecystectomy, Colonoscopy, EGD Female Surgical History: Reports: Hysterectomy Social & Family History - Family History Family Medical History: Noncontributory - Caffeine Use Caffeine Use: Reports: Coffee, Energy Drinks, Soda, Tea Review of Systems - Review of Systems Review Of Systems: Comprehensive ROS is negative, except as noted in HPI. ED EXAM, GENERAL - Physical Exam Exam: See Below Exam Limited By: No Limitations General Appearance: Alert, WD/WN, No Apparent Distress Ears: Normal External Exam Ear Exam: Bilateral Ear: Auricle Normal, Canal Normal, TM normal Nose: Normal Inspection Throat/Mouth: Normal Inspection Head: Atraumatic Extremities: Normal Inspection, Leg Pain, Limited Range of Motion Course - Vital Signs Last Recorded V/S: Last Vital Signs Temp 98.0 F 02/16/20 23:25 Pulse 100 02/16/20 23:25 Resp 20 02/16/20 23:25 BP 135/91 H 02/16/20 23:25 Pulse Ox 98 02/16/20 23:25 - Orders/Labs/Meds Orders: Active Orders 24 hr Category Date Time Status Ankle Min 3V Rt [CR] Stat Exams 02/16/20 23:47 Taken Knee 3V Rt [CR] Stat Exams 02/16/20 23:46 Taken Departure - Departure Time of Disposition: 00:27 Disposition: Home, Self-Care 01 Condition: Good Clinical Impression: Knee sprain, Ankle sprain - Discharge Information Referrals: César Goodwin MD [Primary Care Provider] - Forms: ED Department Discharge Sepsis Event Note (ED) - Evaluation Sepsis Screening Result: No Definite Risk - Focused Exam Vital Signs: Vital Signs Temp Pulse Resp BP Pulse Ox 02/16/20 23:25 98.0 F 100 20 135/91 H 98 - Problem List & Annotations (1) Ankle sprain SNOMED Code(s): 85512698 Code(s): S93.409A - SPRAIN OF UNSP LIGAMENT OF UNSPECIFIED ANKLE, INIT ENCNTR Status: Acute Current Visit: No Qualifiers: Encounter type: initial encounter (2) Knee sprain SNOMED Code(s): 80038356 Code(s): S83.90XA - SPRAIN OF UNSPECIFIED SITE OF UNSPECIFIED KNEE, INIT ENCNTR Status: Acute Current Visit: No Qualifiers: Encounter type: initial encounter - Problem List Review Problem List Initiated/Reviewed/Updated: Yes - My Orders Last 24 Hours: My Active Orders 02/16/20 23:46 Knee 3V Rt [CR] Stat 02/16/20 23:47 Ankle Min 3V Rt [CR] Stat - Assessment/Plan Last 24 Hours: My Active Orders 02/16/20 23:46 Knee 3V Rt [CR] Stat 02/16/20 23:47 Ankle Min 3V Rt [CR] Stat Plan: DC home. NSAIDS prn.RICE
== END 2020-02-17 00:45 | disposition home or self-care (01) ==
LOC: FB.ED 23:24
DX: S93.401A Sprain of unspecified ligament of right ankle, initial encounter (principal); S83.91XA Sprain of unspecified site of right knee, initial encounter; F31.9 Bipolar disorder, unspecified; F41.9 Anxiety disorder, unspecified; E66.9 Obesity, unspecified; Z68.39 Body mass index [BMI] 39.0-39.9, adult; Z91.040 Latex allergy status; Z91.018 Allergy to other foods; Z91.048 Other nonmedicinal substance allergy status; Z79.899 Other long term (current) drug therapy; W18.2XXA Fall in (into) shower or empty bathtub, initial encounter
CPT/HCPCS: 73562-RT; 73610-RT; 99283; 99283-25

== ENCOUNTER 2020-03-21 20:16 | Emergency (ER) | payer MEDICAID ==
[2020-03-21] MEDS ORDERED: Ketorolac 30 MG/ML SDV IVPUSH ONE (20:50)
[2020-03-21] MEDS ORDERED: Sodium Chloride 0.9% 1,000 ML IV ONE (20:50)
[2020-03-21] MEDS ORDERED: hydrOXYzine HCl 50 MG/ML SDV IM ONE (20:51)
[2020-03-21] MEDS ORDERED: Ondansetron 4 MG/2 ML SDV IVPUSH ONE (20:51)
--- NOTE | 2020-03-21 20:52 | EDM.PDOC ---
ED HPI GENERAL MEDICAL PROBLEM - General Chief Complaint: Headache Stated Complaint: HEADACHE Time Seen by Provider: 03/21/20 20:30 Source of Information: Reports: Patient History Limitations: Reports: No Limitations - History of Present Illness INITIAL COMMENTS - FREE TEXT/NARRATIVE: headache since thursday , starts from the front and band like to the back of her head and to the right side has had associated nausea , vomiting x3 , light sensitivity has used exedrin , tylenol , rizatriptan with no resolution Onset: Today Onset Date: 03/18/20 Duration: Getting Worse Location: Reports: Head - Related Data Allergies Allergy/AdvReac Type Severity Reaction Status Date / Time latex Allergy Blisters Verified 02/16/20 23:31 sesame oil Allergy Swollen Verified 02/16/20 23:31 Tongue strawberry Allergy Hives Verified 02/16/20 23:31 [email or web address] Allergy Swollen Uncoded 02/16/20 23:31 Tongue Home Meds: Home Meds Prazosin HCl [Prazosin] 2 mg PO BEDTIME 01/31/19 [History] hydrOXYzine HCL [Atarax] 25 mg PO Q6H PRN 01/31/19 [History] Furosemide 20 mg PO DAILY PRN 12/24/19 [History] Propranolol HCl [Inderal Xl] 120 mg PO BEDTIME 12/24/19 [History] QUEtiapine [SEROquel] 200 mg PO BEDTIME 12/24/19 [History] Rizatriptan Benzoate [Rizatriptan] 10 mg .ROUTE ASDIRECTED PRN 12/24/19 [History] lamoTRIgine 200 mg PO BEDTIME 12/24/19 [History] tiZANidine [Zanaflex] 2 - 4 mg PO TID PRN 12/24/19 [History] Cyclobenzaprine [Flexeril] 10 mg PO TID PRN 02/16/20 [History] Pregabalin [Lyrica] 150 mg PO BID 02/16/20 [History] Ketorolac [Toradol] 10 mg PO Q6H PRN #15 tab 03/21/20 [Rx] Past Medical History HEENT History: Reports: Impaired Vision Gastrointestinal History: Reports: Inflammatory Bowel Disease 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: Musculoskeletal History: Reports: Fibromyalgia Neurological History: Reports: Migraines Psychiatric History: Reports: Anxiety, Bipolar, Depression Endocrine/Metabolic History: Reports: Obesity/BMI 30+ - Infectious Disease History Infectious Disease History: Reports: Chicken Pox - Past Surgical History GI Surgical History: Reports: Cholecystectomy, Colonoscopy, EGD Female Surgical History: Reports: Hysterectomy Social & Family History - Family History Family Medical History: Noncontributory - Caffeine Use Caffeine Use: Reports: Coffee, Energy Drinks, Soda, Tea ED ROS GENERAL - Review of Systems Review Of Systems: See Below Constitutional: Reports: No Symptoms HEENT: Reports: No Symptoms Respiratory: Reports: No Symptoms Cardiovascular: Reports: No Symptoms Endocrine: Reports: No Symptoms GI/Abdominal: Reports: No Symptoms : Reports: No Symptoms Musculoskeletal: Reports: No Symptoms. Denies: Neck Pain Skin: Reports: No Symptoms Neurological: Reports: Headache. Denies: Syncope, Tingling, Weakness, Change in Speech Psychiatric: Reports: No Symptoms Hematologic/Lymphatic: Reports: No Symptoms - Physical Exam Exam: See Below Exam Limited By: No Limitations General Appearance: Alert, WD/WN, No Apparent Distress Eye Exam: Bilateral Eye: EOMI Ears: Normal External Exam Nose: Normal Inspection Throat/Mouth: Normal Oropharynx Head Exam: Atraumatic, Normocephalic Neck: Supple, Non-Tender Respiratory/Chest: Lungs Clear, Normal Breath Sounds Cardiovascular: Regular Rate, Rhythm Neuro Exam (Abbreviated): Alert, Oriented, CN II-XII Intact, Normal Cognition, Normal Gait, Normal Reflexes, No Motor/Sensory Deficits Extremities: Normal Inspection, Normal Range of Motion Psychiatric: Normal Affect, Normal Mood Skin Exam: Warm, Intact Course - Vital Signs Last Recorded V/S: Last Vital Signs Temp 37.3 C 03/21/20 20:23 Pulse 107 H 03/21/20 20:23 Resp 16 03/21/20 20:23 BP 134/93 H 03/21/20 20:23 Pulse Ox 94 L 03/21/20 20:23 - Orders/Labs/Meds Meds: Medications Discontinued Medications Generic Name Dose Route Start Last Admin Trade Name Freq PRN Reason Stop Dose Admin Hydroxyzine HCl 50 mg 03/21/20 20:51 Vistaril IM 03/21/20 20:52 ONETIME ONE Sodium Chloride 1,000 mls @ 999 mls/hr 03/21/20 20:50 Normal Saline IV 03/21/20 21:50 .BOLUS ONE Ketorolac Tromethamine 30 mg 03/21/20 20:50 Toradol IVPUSH 03/21/20 20:51 ONETIME ONE Ondansetron HCl 8 mg 03/21/20 20:51 Zofran IVPUSH 03/21/20 20:52 ONETIME ONE - Re-Assessments/Exams Free Text/Narrative Re-Assessment/Exam: 03/21/20 22:20 Pt given IVF, toradol, vistaril and Zofran Headache has reduced to 6/10 Departure - Departure Time of Disposition: 10:23 Disposition: Home, Self-Care 01 Clinical Impression: Migraine headache without aura - Discharge Information *PRESCRIPTION DRUG MONITORING PROGRAM REVIEWED*: Not Applicable *COPY OF PRESCRIPTION DRUG MONITORING REPORT IN PATIENT BALA: Not Applicable Prescriptions: Ketorolac [Toradol] 10 mg PO Q6H PRN #15 tab PRN Reason: Headache/Pain Instructions: Recurrent Migraine Headache, [id number] Referrals: César Goodwin MD [Primary Care Provider] - Forms: ED Department Discharge Sepsis Event Note (ED) - Focused Exam Vital Signs: Vital Signs Temp Pulse Resp BP Pulse Ox 03/21/20 20:23 37.3 C 107 H 16 134/93 H 94 L
== END 2020-03-21 22:34 | disposition home or self-care (01) ==
LOC: FB.ED 20:16
DX: G43.009 Migraine without aura, not intractable, without status migrainosus (principal); F41.9 Anxiety disorder, unspecified; F31.9 Bipolar disorder, unspecified; E66.9 Obesity, unspecified; Z68.39 Body mass index [BMI] 39.0-39.9, adult; Z91.040 Latex allergy status; Z91.018 Allergy to other foods; Z79.899 Other long term (current) drug therapy
CPT/HCPCS: 96361; 96372; 96374; 96375; 99283; J1885; J2405; J3410; J7030

== ENCOUNTER 2020-03-28 08:01 | Day surgery (SDC) | payer MEDICAID ==
[~2020-03-28 08:01] MED LIST: Lactated Ringers 1,000 ML IV SCH; Sodium Chloride 0.9% 10 ML Syringe FLUSH PRN
[2020-03-28] MEDS ORDERED: Propofol 200 MG/20 ML SDV IV ONE (08:02)
--- NOTE | 2020-03-28 09:24 | PCM.OPNOTE ---
- General Post-Op/Procedure Note Date of Surgery/Procedure: 03/28/20 Operative Procedure(s): egd with bx Findings: gastritis irregular z line Pre Op Diagnosis: hx of dysphagia Post-Op Diagnosis: gastritis. irregular z line Anesthesia Technique: MAC Primary Surgeon: Ang Mckeon Anesthesia Provider: Roberto Almanzar Pathology: stomach and esophagus Complications: None Condition: Good Free Text/Narrative:: see dictation
--- NOTE | 2020-03-29 08:48 | OR ---
DATE OF OPERATION: 03/28/2020 SURGEON: Ang Mckeon MD PROCEDURE: Esophagogastroduodenoscopy with cold forceps biopsy. PREOPERATIVE DIAGNOSIS: Personal history of dysphagia. POSTOPERATIVE DIAGNOSIS: Gastritis and an irregular Z-line. INDICATIONS FOR PROCEDURE: This is a 44-year-old white female who is referred with the above-mentioned complaints. She was offered and accepted an endoscopy as part of her workup. DESCRIPTION OF OPERATION: After an excellent IV sedation was administered, the bite block was inserted. Flexible endoscope was passed without difficulty down the patient's esophagus into the stomach. The stomach was insufflated. Scope passed through the pylorus to the second portion of the duodenum and slowly withdrawn. The following findings were noted: Duodenum was unremarkable. Stomach demonstrated some mild erythema especially in the area of the antrum. Biopsies were taken. GE junction measured approximately 38 cm. The Z-line had some slight irregularity to it and circumferential biopsies were taken. The remainder of the esophageal exam was unremarkable. The stomach was deflated. Scope was removed. The patient tolerated the procedure well, was taken to Recovery. Results will be sent via letter, and if no marked abnormalities were noted, next recommendation would be a manometry study. /[id number] /RYANL
== END 2020-03-28 10:07 | disposition home or self-care (01) ==
LOC: FB.SDS 08:01
PROVIDERS: ATTEND Surgery
DX: K29.50 Unspecified chronic gastritis without bleeding (principal); K21.0 Gastro-esophageal reflux disease with esophagitis; F41.1 Generalized anxiety disorder; F17.210 Nicotine dependence, cigarettes, uncomplicated; F43.10 Post-traumatic stress disorder, unspecified; Z91.040 Latex allergy status
CPT/HCPCS: 00731; 43239; J2704; J7120; 88305; 88313; 88342

== ENCOUNTER 2022-02-06 12:06 | Emergency (ER) | payer MEDICAID ==
[2022-02-06] MEDS ORDERED: Aspirin 81 MG Tab.Chew PO ONE (12:17)
[2022-02-06] MEDS ORDERED: Sodium Chloride 0.9% 10 ML Syringe FLUSH PRN (12:17)
[2022-02-06 12:44] LABS: ESTIMATED GFR 92 mL/min (>60)
[2022-02-06] MEDS ORDERED: Ondansetron 4 MG Tab.DIS PO ONE (12:44)
[2022-02-06] MEDS ORDERED: LORazepam 2 MG/ML SDV IVPUSH ONE (13:10)
[2022-02-06] MEDS ORDERED: Ketorolac 30 MG/ML SDV IVPUSH ONE (13:10)
== END 2022-02-06 16:00 | disposition home or self-care (01) ==
LOC: FB.ED 12:06
DX: R07.89 Other chest pain (principal); E66.9 Obesity, unspecified; Z68.39 Body mass index [BMI] 39.0-39.9, adult; Z90.49 Acquired absence of other specified parts of digestive tract; Z90.710 Acquired absence of both cervix and uterus; Z79.899 Other long term (current) drug therapy; Z91.040 Latex allergy status; Z91.018 Allergy to other foods
CPT/HCPCS: 36415; 71046; 80048; 84484; 85027; 85379; 93005; 96374; 96375; 99285; A9270; J1885; J2060; Q0162